=== PATIENT | female | born 1950 | race Caucasian/White ===

== ENCOUNTER 2025-03-03 11:39 | Outpatient (CLI) | payer MEDICARE, OTHER | END 2025-03-03 11:40 | disposition home or self-care (01) | LOC: LABBT 11:39 | PROVIDERS: ATTEND Student in an Organized Health Care Education/Training Program | DX: Z01.818 Encounter for other preprocedural examination (principal); M16.11 Unilateral primary osteoarthritis, right hip; I51.7 Cardiomegaly | CPT/HCPCS: 71046 ==